=== PATIENT | male | born 1950 | race Caucasian/White ===

== ENCOUNTER 2021-01-15 10:05 | Outpatient (CLI) | payer MEDICARE, SELFPAY ==
[2021-01-15 12:06] LABS: Add Urine Microscopic? YES; Appearance Urine Cloudy (Clear); Bilirubin Urine Negative (Negative); Blood Urine 3+ (Negative); Color Urine Red (Yellow); Glucose Urine UA 1+ mg/dL (Negative); Ketones Urine Negative (Negative); Leukocyte Esterase Ur Negative LEU/UL (NEGATIVE); Nitrate Urine Negative (Negative); Protein Urine 2+ mg/dL (Negative); RBC Urine >75 /hpf (0-2); Specific Grav Ur 1.015 (1.001-1.035); Urobilinogen Urine Negative mg/dL (<2.0); WBC Urine >75 /hpf (0-3)
== END 2021-01-15 10:06 | disposition home or self-care (01) ==
PROVIDERS: PCP Internal Medicine; Visit Provider Physician Assistant
DX: R31.9 Hematuria, unspecified (principal)
CPT/HCPCS: 81001; 87086; 87088

== ENCOUNTER 2021-02-04 02:21 | Day surgery (SDC) | payer MEDICARE, SELFPAY ==
[2021-01-27 11:22] VITALS: BMI 27.8
[2021-02-04 08:10] VITALS: BP 151/75; PULSE 50; RESP 16; TEMP 36.3; O2SAT 98; BMI 26.8
[2021-02-04] MEDS: LACTATED RINGERS 1,000 ML 150 ML IV CONT (08:14)
[2021-02-04 08:29] LABS: Glucose Point of Care 143 mg/dl (65-105)
--- NOTE | 2021-02-04 08:37 | WPDANESEPPF ---
Anes - Initial Pre Proc Eval Procedure: Operation Date: 02/04/21 09:00 Proposed Procedures p Screening Colonoscopy - Tino Pop MD Date/Time: 02/04/21 08:37 Surgeon: iTno Pop MD Pre Op Diagnosis: neoplasm screening Patient Data Age: 70 Gender: M Height: 1.83 m Weight: 89.8 kg Last Vital Signs Temp 97.4 F L 02/04/21 08:10 Pulse 50 L 02/04/21 08:10 Resp 16 02/04/21 08:10 BP 151/75 H 02/04/21 08:10 Pulse Ox 98 02/04/21 08:10 Allergies Allergy/AdvReac Type Severity Reaction Status Date / Time No Known Allergies Allergy Verified 02/04/21 08:09 Home Medications Medication Instructions Recorded Confirmed Type aspirin 81 mg tablet,delayed 81 mg PO DAILY 06/27/19 02/04/21 History release multivitamin 1 tablet PO DAILY 06/27/19 02/04/21 History blood sugar diagnostic #100 each 07/05/19 01/02/21 Rx blood-glucose meter #1 each 07/05/19 01/02/21 Rx lancets #100 each 07/05/19 01/02/21 Rx atorvastatin 80 mg tablet 80 mg PO DAILY #90 tablet 11/06/20 02/04/21 Rx metformin 500 mg tablet 500 mg PO BID #180 tablet 11/06/20 02/04/21 Rx Laboratory Tests 02/04/21 08:27 POC Capillary Glucose 143 mg/dl H mg/dl (65-105) Patient hx anesthesia problems: none Family hx anesthesia problems: none PMFSH Past Medical History Medical History (Updated 02/04/21 @ 08:33 by Ady Duarte MD) Diabetes Family History Family History Father Heart disease Mother Breast cancer Sibling Diabetes mellitus Heart disease Sibling Diabetes mellitus Heart disease Sibling Heart disease Social History Social History Smoking status: Former smoker Tobacco type: cigarettes Second hand tobacco smoke exposure: No Alcohol intake: current Drinks per week: 4 Substance use: never Living arrangements: with family Spiritual care concerns: No Anes - Eval Final PreProcedure Day of Procedure 02/04/21 08:37 Patient weight: overweight Heart: regular rate and rhythm Lungs: clear to auscultation Airway: Mallampati scale class II Neurological: alert and oriented Last oral intake: >/= 8 hours ASA classification: III Emergent: no Anesthetic plan: proceed Anesthesia type and monitoring: general GIVS and standard monitoring Informed Consent: The patient's anesthetic plan and its attendant risks and benefits were discussed with the patient/family/POA. Questions were solicited and answers provided to the satisfaction of the patient/family/POA.
--- NOTE | 2021-02-04 08:40 | PM.HPGS ---
History of Present Illness History of Present Illness Consent: Risks, benefits, and alternatives have been discussed and questions answered. Patient agrees to proceed with procedure. Chief complaint: neoplasm screening Narrative: Dante Du is a 70 year old male referred for colon cancer screening. He has had polyps removed in the past when he lived in [place]. Review of Systems Review of Systems: All systems reviewed & are unremarkable except as noted in HPI and below PMFSH Past Medical History Medical History Diabetes Family History Family History Father Heart disease Mother Breast cancer Sibling Diabetes mellitus Heart disease Sibling Diabetes mellitus Heart disease Sibling Heart disease Social History Social History Smoking status: Former smoker Tobacco type: cigarettes Second hand tobacco smoke exposure: No Alcohol intake: current Drinks per week: 4 Substance use: never Living arrangements: with family Spiritual care concerns: No Meds Home Medications and Allergies Home Medications Medication Instructions Recorded Confirmed Type aspirin 81 mg tablet,delayed 81 mg PO DAILY 06/27/19 02/04/21 History release multivitamin 1 tablet PO DAILY 06/27/19 02/04/21 History blood sugar diagnostic #100 each 07/05/19 01/02/21 Rx blood-glucose meter #1 each 07/05/19 01/02/21 Rx lancets #100 each 07/05/19 01/02/21 Rx atorvastatin 80 mg tablet 80 mg PO DAILY #90 tablet 11/06/20 02/04/21 Rx metformin 500 mg tablet 500 mg PO BID #180 tablet 11/06/20 02/04/21 Rx Allergies Allergy/AdvReac Type Severity Reaction Status Date / Time No Known Allergies Allergy Verified 02/04/21 08:09 Vital Signs Vital Signs - 24 hr 02/04/21 08:10 Temperature 36.3 C L Pulse Rate 50 L Respiratory Rate 16 Blood Pressure 151/75 H Pulse Oximetry 98 Exam Resp: Auscultation: clear to auscultation bilaterally Cardio: Rate: regular rate Rhythm: regular rhythm GI: GI Palp: Yes Soft to palpation and No Tenderness to palpation present (GI) Assessment and Plan Assessment and plan (1) Colon cancer screening: Code(s): Z12.11 - Encounter for screening for malignant neoplasm of colon Status: Acute Assessment and Plan: Colonoscopy with possible biopsy or polypectomy or cautery or injection of substances.
[2021-02-04 09:10] VITALS: BP 108/45; PULSE 49; RESP 19; O2SAT 100
[2021-02-04 09:20] VITALS: BP 148/76; PULSE 45; RESP 21; O2SAT 100
[2021-02-04 09:30] VITALS: BP 150/72; PULSE 42; RESP 21; O2SAT 95
== END 2021-02-04 09:48 | disposition home or self-care (01) ==
PROVIDERS: PCP Internal Medicine; Visit Provider Internal Medicine Gastroenterology
PROC: 0DJD8ZZ Inspection of Lower Intestinal Tract, Via Natural or Artificial Opening Endoscopic (ICD-10-PCS; CPT 45378; principal; 2021-02-04 09:00)
DX: Z12.11 Encounter for screening for malignant neoplasm of colon (principal); K57.30 Diverticulosis of large intestine without perforation or abscess without bleeding; Z86.010 Personal history of colon polyps; E11.9 Type 2 diabetes mellitus without complications; Z79.82 Long term (current) use of aspirin; Z79.84 Long term (current) use of oral hypoglycemic drugs; Z87.891 Personal history of nicotine dependence
CPT/HCPCS: G0105; 82948; J2704; J7120

== ENCOUNTER 2021-08-26 14:30 | Outpatient (RCR) | payer MEDICARE, SELFPAY ==
[2021-06-30 12:56] VITALS: BMI 27.8
[2021-06-30 13:03] VITALS: BMI 27.8
[2021-06-30 17:00] VITALS: BMI 27.8
== END 2021-09-14 12:10 | disposition home or self-care (01) ==
LOC: ANHDMC 14:30
PROVIDERS: PCP Internal Medicine; Visit Provider Internal Medicine
DX: E11.9 Type 2 diabetes mellitus without complications (principal); Z71.3 Dietary counseling and surveillance; Z71.89 Other specified counseling
CPT/HCPCS: 97802; 99199; G0108; G0109

== ENCOUNTER 2021-11-10 10:01 | Outpatient (RCR) | payer MEDICARE, SELFPAY | END 2021-11-10 13:33 | disposition home or self-care (01) | LOC: ANHDMC 10:01 | PROVIDERS: PCP Physician Assistant; Visit Provider Internal Medicine | DX: E11.9 Type 2 diabetes mellitus without complications (principal); Z71.89 Other specified counseling | CPT/HCPCS: G0108 ==

== ENCOUNTER → 2022-01-11 13:37 | Outpatient (CLI) | payer MEDICARE, SELFPAY ==
--- NOTE | ~2022-01-11 | XR_ITS ---
XR lumbar spine 6V w bending DATE: 01/11/2022 14:03 INDICATION: Low back pain and right leg pain for one week TECHNIQUE: AP, lateral, bilateral oblique views and coned lateral lumbosacral view. Traction and exte nsion lateral views. COMPARISON: None FINDINGS: Osteopenia. There is 14 degrees rotatory levoscoliosis measured from L1 to L4. There is moderately severe degenerative disc disease throughout the lumbar and lumbosacral spine incl uding loss of disc space height and spurring. There is degenerative change at the apophyseal joints with associated slight grade 1 anterolisthesis at L4-5. No fracture or bone destruction is evident. The lumbar pedicles are intact. Sacroiliac joints appear normal. IMPRESSION: 14 degrees rotatory levoscoliosis of the lumbar spine Moderately severe degenerative disease throughout the lumbar spine Grade 1 anterolisthesis at L4-5 due to degenerative change at the apophyseal joints Osteopenia Reviewed, dictated and finalized at location B. IMPRESSION: 14 degrees rotatory levoscoliosis of the lumbar spine Moderately severe degenerative disease throughout the lumbar spine Grade 1 anterolisthesis at L4-5 due to degenerative change at the apophyseal annie ints Osteopenia
== END ==
PROVIDERS: PCP Internal Medicine; Visit Provider Physician Assistant
DX: M79.661 Pain in right lower leg (principal); M51.36 Other intervertebral disc degeneration, lumbar region; M85.88 Other specified disorders of bone density and structure, other site
CPT/HCPCS: 72114

== ENCOUNTER 2022-05-25 16:44 | Outpatient (CLI) | payer MEDICARE, SELFPAY ==
--- NOTE | ~2022-05-25 | MR_ITS ---
MRI of the lumbar spine Clinical History: Back pain Technique: Axial T2-weighted images, and sagittal T1-weighted, T2-weighted, and T2 fat-sat images wer e acquired. Findings: No fracture and 5. Minimal grade 1 retrolisthesis of L1 over L2 noted. No focal or suspicio us bone marrow signal abnormality identified. At L1-L2, there is no significant disc bulge. There is facet joint arthropathy, moderate to severe. N o spinal canal stenosis. There is moderate to severe right neural foraminal narrowing. Left neural fo ramen preserved. At L2-L3, there is disc bulge and facet arthropathy, without ger thecal sac compression. There is m ild right neural foraminal narrowing. Left neural foramen preserved. At L3-L4, there is diffuse disc bulge with probable superimposed mild left para central/foraminal pro trusion. There is advanced facet arthropathy. These factors contribute to severe thecal sac compressi on. There is mild to moderate bilateral neural foraminal narrowing. At L4-L5, there is mild diffuse disc bulge with facet arthropathy. No ger spinal canal stenosis. Th ere is minimal left neural foraminal narrowing. Right neural foramen preserved. At L5-S1, there is minimal disc bulge with small annular tear. There is moderate to advanced facet ar thropathy. There is probable stenosis at the left lateral recess. Right neural foramen preserved. The re is mild left neural foraminal narrowing. Paravertebral soft tissues are unremarkable. Impression: Moderate degenerative spondylosis overall, as detailed above. There is multifactorial severe thecal s ac compression L3-L4, with bilateral neural foraminal narrowing at this level. Additional multilevel neural foraminal narrowing, as detailed above. Minimal grade 1 retrolisthesis of L1 over L2. Reviewed, dictated and finalized at location M. [employer] Impression: Moderate degenerative spondylosis overall, as detailed above. There is multifac torial severe thecal sac compression L3-L4, with bilateral neural foraminal lewis rowing at this level. Additional multilevel neural foraminal narrowing, as deta iled above. Minimal grade 1 retrolisthesis of L1 over L2.
== END 2022-05-25 16:45 | disposition home or self-care (01) ==
PROVIDERS: PCP Internal Medicine; Visit Provider Physician Assistant
DX: M47.896 Other spondylosis, lumbar region (principal)
CPT/HCPCS: 72148